=== PATIENT | female | born 1990 | race Caucasian/White ===

== ENCOUNTER 2017-08-07 17:39 | Emergency (ER) | payer SELFPAY ==
[~2017-08-07] VITALS: Ht 162.6 cm; Wt 73.7 kg
[2017-08-07 17:59] VITALS: BP 140/82
--- NOTE | 2017-08-07 18:10 | NUR ---
PT AMBULATES BACK TO THE LOBBY
--- NOTE | 2017-08-07 19:40 | NUR ---
PT.AMBULATED TO ER BED 1
--- NOTE | 2017-08-07 19:41 | NUR ---
PATIENT PRESENTS TO ED WITH REDNESS AND SWELLING TO THE POSTERIOR LEFT EAR. PT DENIES N/V/D; SKIN IS PINK/WARM/DRY; AAOX4 WITH EVEN AND STEADY GAIT; LUNGS CLEAR BL; HR EVEN AND REGULAR; PT DENIES ANY FEVER, CP, SOB, OR COUGH AT THIS TIME; PATIENT STATES PAIN OF 8/10 AT THIS TIME; VSS; PATIENT POSITIONED FOR COMFORT; HOB ELEVATED; BEDRAILS UP X1; BED DOWN. ER MD MADE AWARE OF PT STATUS.
[2017-08-07] MEDS ORDERED: KETOROLAC 60 MG/2 ML VIAL IM ONE (20:45)
[2017-08-07 21:09] VITALS: BP 140/82
--- NOTE | 2017-08-07 21:09 | NUR ---
Patient discharged with v/s stable. Written and verbal after care instructions given and explained. Patient alert, oriented and verbalized understanding of instructions. Ambulatory with steady gait. All questions addressed prior to discharge. ID band removed. Patient advised to follow up with PMD. Rx of KEFLEX, BACTRIM, NORCO given. Patient educated on indication of medication including possible reaction and side effects. Opportunity to ask questions provided and answered.
== END 2017-08-07 21:09 | disposition home or self-care (01) ==
LOC: MED 17:39
DX: R22.0 Localized swelling, mass and lump, head (principal); H92.02 Otalgia, left ear
CPT/HCPCS: 96372; 99283; J1885